=== PATIENT | male | born 1945 | race Caucasian/White ===

== ENCOUNTER 2022-07-09 18:59 | Emergency (ER) | payer OTHER ==
[~2022-07-09] VITALS: Ht 180.3 cm; Wt 77.1 kg
[2022-07-09] MEDS ORDERED: ELIQUIS5 M2 PO (21:11)
== END 2022-07-09 21:29 | disposition home or self-care (01) ==
LOC: ER 18:59
DX: I82.451 Acute embolism and thrombosis of right peroneal vein (principal)
CPT/HCPCS: 93971; A9270